=== PATIENT | male | born 1950 | race Caucasian/White ===

== ENCOUNTER → 2018-05-07 | Outpatient (CLI) | payer OTHER ==
--- NOTE | 2018-05-07 09:57 | PCVCIMAG ---
EXAM: BILATERAL RENAL ULTRASOUND AND BILATERAL RENAL DUPLEX INDICATION: Hypertension FINDINGS: Right kidney: Length measures 12.6 cm. No hydronephrosis or extensive renal scarring. Right renal duplex: Adequate technical quality. No sonographic evidence of renal artery stenosis. The aortic to renal artery ratio is 2.4. The renal vein is patent. Left kidney: Length measures 12.3 cm. No hydronephrosis or extensive renal scarring. Left renal duplex: Adequate technical quality. No sonographic evidence of renal artery stenosis. The aortic to renal artery ratio is 1.8. The renal vein is patent. Bladder: No obvious abnormalities. IMPRESSION: No significant renal artery stenosis. No hydronephrosis bilaterally. LOC:[id number]
== END | disposition home or self-care (01) ==
LOC: PCVCIMAG 10:38
PROVIDERS: ATTEND Internal Medicine Cardiovascular Disease
DX: I10 Essential (primary) hypertension (principal)
CPT/HCPCS: 76770; 93975